=== PATIENT | female | born 1970 | race Two or more races ===

== ENCOUNTER 2018-04-18 05:45 | Day surgery (SDC) | payer OTHER ==
[2018-04-18] MEDS ORDERED: MACROBID 100 M100 MG PO (12:28)
[2018-04-18] MEDS ORDERED: ULTRACET PO (12:28)
== END 2018-04-18 15:35 | disposition home or self-care (01) ==
LOC: CIR.AMB 05:45
DX: N81.6 Rectocele (principal); N81.5 Vaginal enterocele